=== PATIENT | male | born 1940 | race Caucasian/White ===

== ENCOUNTER 2017-07-07 20:28 | Emergency (ER) | payer MEDICARE ==
[2017-07-07 20:33] VITALS: BP_SYST 132; BP_DIAS 0; BP_DIAS 70; PULSE 56; RESP 20; TEMP 97.8; O2SAT 99
--- NOTE | 2017-07-07 21:01 | PD ---
HPI Chief Complaint: Head Injury Time Seen by Provider: 20:46 Travel History International Travel<30 days: No Contact w/Intl Traveler<30days: No Traveled to known affect area: No History of Present Illness HPI 76yo M with PMH of CAD on coumadin here for evaluation after head trauma. Pt had been drinking at a [employer] since 2pm today and went home to sleep. His heard a loud thump and pt had rolled off the bed and has a large hematoma on right forehead. Pt said he does not really remember what happened but denies any complaints. Pt denies any visual changes, chest pain, sob, n/v, abdominal pain, focal weakness or numbness. Said up to date on tetanus. PFSH Past Medical History Hx Anticoagulant Therapy: Yes (COUMADIN) Social History Tobacco Use: No Allergies-Medications (Allergen,Severity, Reaction): Coded Allergies: No Known Allergies (Verified Allergy, Unknown, 07/07/17) Reported Meds & Prescriptions Reported Meds & Active Scripts Active Active Prescriptions or Reported Medications Unobtainable Review of Systems Except as stated in HPI: all other systems reviewed are Neg Physical Exam Narrative GENERAL: 76yo M mildly intoxicated. SKIN: Focused skin assessment warm/dry. HEAD: +Large right forehead hematoma with some dry blood. No active bleeding. EYES: Pupils equal and round at 4mm bilaterally. EOMI. ENT: No hemotympanum. No septal hematoma. NECK: No midline ttp. CARDIOVASCULAR: Regular rate and rhythm. No murmur appreciated. RESPIRATORY: No accessory muscle use. Clear to auscultation. Breath sounds equal bilaterally. GASTROINTESTINAL: Abdomen soft, non-tender, nondistended. MUSCULOSKELETAL: No obvious deformities. No clubbing. No cyanosis. No edema. NEUROLOGICAL: Awake and alert. No obvious cranial nerve deficits. Motor grossly within normal limits in all extremities. Sensation equal bilaterally. Normal speech. PSYCHIATRIC: Appropriate mood and affect; insight and judgment normal. Data Data Last Documented VS Vital Signs Date Time Temp Pulse Resp B/P (MAP) Pulse Ox O2 Delivery O2 Flow Rate FiO2 07/07/17 23:00 07/07/17 22:23 57 17 99 Room Air 07/07/17 20:[address] Brain W/O Iv Contrast(Rout) (07/07/17 ) Complete Blood Count With Diff (07/07/17 20:56) Basic Metabolic Panel (Bmp) (07/07/17 20:56) Prothrombin Time / Inr (Pt) (07/07/17 20:56) Act Partial Throm Time (Ptt) (07/07/17 20:56) Ct Cerv Spine W/O Contrast (07/07/17 ) Ed Discharge Order (07/07/17 22:56) Labs Laboratory Tests Test 07/07/17 21:00 White Blood Count 6.6 TH/MM3 Red Blood Count 4.01 MIL/MM3 Hemoglobin 12.7 GM/DL Hematocrit 37.5 % Mean Corpuscular Volume 93.6 FL Mean Corpuscular Hemoglobin 31.7 PG Mean Corpuscular Hemoglobin Concent 33.9 % Red Cell Distribution Width 13.1 % Platelet Count 252 TH/MM3 Mean Platelet Volume 7.3 FL Neutrophils (%) (Auto) 56.4 % Lymphocytes (%) (Auto) 32.1 % Monocytes (%) (Auto) 9.3 % Eosinophils (%) (Auto) 1.5 % Basophils (%) (Auto) 0.7 % Neutrophils # (Auto) 3.8 TH/MM3 Lymphocytes # (Auto) 2.1 TH/MM3 Monocytes # (Auto) 0.6 TH/MM3 Eosinophils # (Auto) 0.1 TH/MM3 Basophils # (Auto) 0.0 TH/MM3 CBC Comment DIFF FINAL Differential Comment Prothrombin Time 11.3 SEC Prothromb Time International Ratio 1.1 RATIO Activated Partial Thromboplast Time 24.9 SEC Blood Urea Nitrogen 16 MG/DL Creatinine 0.93 MG/DL Random Glucose 119 MG/DL Calcium Level 8.6 MG/DL Sodium Level 138 MEQ/L Potassium Level 3.7 MEQ/L Chloride Level 103 MEQ/L Carbon Dioxide Level 28.2 MEQ/L Anion Gap 7 MEQ/L Estimat Glomerular Filtration Rate 79 ML/MIN [facility] Medical Decision Making Medical Screen Exam Complete: Yes Emergency Medical Condition: Yes Differential Diagnosis ICH vs. contusion vs. concussion Narrative Course 76yo M with head injury after falling off the bed today. Labs reviewed, no leukocytosis. H/H 12.7/37.5. BMP unremarkable. INR is 1.1. CT cspine showed degenerative changes without fracture. Small stenosis is mild to moderate. CT brain showed right cephalohematoma otherwise negative for acute process. Pt's is with him and he can be observed at home. Pt is GCS 15 and has no focal neurologic deficits. Return precautions given. Diagnosis Primary Impression: Head injury Qualified Codes: S09.90XA - Unspecified injury of head, initial encounter Patient Instructions: General Instructions Departure Forms: Tests/Procedures Additional Instructions: Please follow up with your primary care physician in 2-3 days. Return to the ED if symptoms worsen. Med/Other Pt SpecificInfo: No Change to Meds Scripts Unable to Obtain Active Prescriptions or Reported Meds Disposition: 01 DISCHARGE HOME Condition: Stable Shania Paula DO Jul 07, 2017 21:01
[2017-07-07 21:10] LABS: AUTOMATED NEUTROPHIL # 3.8 TH/MM3 (1.8-7.7); BASOPHIL % 0.7 % (0.0-2.0); EOSINOPHIL # 0.1 TH/MM3 (0-0.4); EOSINOPHIL % 1.5 % (0.0-4.0); HEMATOCRIT 37.5 % (39.0-51.0); HEMOGLOBIN 12.7 GM/DL (13.0-17.0); LYMPH % 32.1 % (9.0-44.0); LYMPHOCYTE # 2.1 TH/MM3 (1.0-4.8); MEAN CELL VOLUME 93.6 FL (80.0-100.0); MEAN CORPUSCULAR HEMOGLOBIN 31.7 PG (27.0-34.0); MEAN CORPUSCULAR HGB CONC 33.9 % (32.0-36.0); MEAN PLATELET VOLUME 7.3 FL (7.0-11.0); MONO % 9.3 % (0.0-8.0); MONOCYTE # 0.6 TH/MM3 (0-0.9); NEUT % 56.4 % (16.0-70.0); PLATELET COUNT 252 TH/MM3 (150-450); RED BLOOD COUNT 4.01 MIL/MM3 (4.50-5.90); RED CELL DISTRIBUTION WIDTH 13.1 % (11.6-17.2); WHITE BLOOD COUNT 6.6 TH/MM3 (4.0-11.0)
[2017-07-07] MEDS ORDERED: WARF-18 PO (21:14)
[2017-07-07 21:23] LABS: CALCIUM 8.6 MG/DL (8.5-10.1)
[2017-07-07 21:24] LABS: BICARBONATE 28.2 MEQ/L (21.0-32.0)
[2017-07-07 21:26] LABS: INTERNATIONAL NORMALIZED RATIO 1.1 RATIO; PROTHROMBIN TIME - PATIENT 11.3 SEC (9.8-11.6)
[2017-07-07 21:27] LABS: CREATININE 0.93 MG/DL (0.60-1.30)
--- NOTE | 2017-07-07 22:00 | RADRPT ---
EXAM DATE/TIME: 07/07/2017 21:30 [facility] COMPARISON: No previous studies available for comparison. INDICATIONS : Trauma, fall from bed. Hematoma to right forehead. RADIATION DOSE: 58.17 CTDIvol (mGy) MEDICAL HISTORY : Cardiovascular disease. Hypertension. SURGICAL HISTORY : CABG ENCOUNTER: Initial ACUITY: 1 day PAIN SCALE: 3/10 LOCATION: Right frontal TECHNIQUE: Multiple contiguous axial images were obtained of the head. Using automated exposure control and adj ustment of the mA and/or kV according to patient size, radiation dose was kept as low as reasonably a chievable to obtain optimal diagnostic quality images. DICOM format image data is available electro nically for review and comparison. FINDINGS: CEREBRUM: The ventricles are normal for age. No evidence of midline shift, mass lesion, hemorrhage or acute in farction. No extra-axial fluid collections are seen. POSTERIOR FOSSA: The cerebellum and brainstem are intact. The 4th ventricle is midline. The cerebellopontine angle i s unremarkable. EXTRACRANIAL: The visualized portion of the orbits is intact. SKULL: The calvaria is intact. No evidence of skull fracture. Right cephalohematoma CONCLUSION: Right cephalohematoma otherwise negative for an acute process. Luis Osei MD FACR on July 07, 2017 at 21:57 Board Certified Radiologist. This report was verified electronically.
--- NOTE | 2017-07-07 22:07 | RADRPT ---
EXAM DATE/TIME: 07/07/2017 21:30 [facility] COMPARISON: No previous studies available for comparison. INDICATIONS : Trauma, fall from bed. RADIATION DOSE: 26.56 CTDIvol (mGy) MEDICAL HISTORY : Hypertension. Cardiovascular disease SURGICAL HISTORY : CABG ENCOUNTER: Initial ACUITY: 1 day PAIN SCALE: 0/10 LOCATION: neck TECHNIQUE: Volumetric scanning of the cervical spine was performed. Multiplanar reconstructions in the sagittal, coronal and oblique axial planes were performed. Using automated exposure control and adjustment o f the mA and/or kV according to patient size, radiation dose was kept as low as reasonably achievable to obtain optimal diagnostic quality images. DICOM format image data is available electronically f or review and comparison. FINDINGS: VERTEBRAE: Normal vertebral body height. ALIGNMENT: No evidence of subluxation. C2-C3: The bony spinal canal is normal in size. No evidence of disc bulge or herniation. The neural forami na are bilaterally patent. C3-C4: Moderate uncinate ridging is present with bilateral neural foraminal encroachment C4-C5: Moderate uncinate ridging is present with bilateral neural foramina encroachment C5-C6: Moderate uncinate ridging with bilateral neural foramina encroachment C6-C7: The bony spinal canal is normal in size. No evidence of disc bulge or herniation. The neural forami na are bilaterally patent. C7-T1: The bony spinal canal is normal in size. No evidence of disc bulge or herniation. The neural forami na are bilaterally patent. CONCLUSION: Degenerative changes without fracture. Small stenosis is mild to moderate. Luis Osei MD FACR on July 07, 2017 at 22:02 Board Certified Radiologist. This report was verified electronically.
[2017-07-07 22:23] VITALS: BP 134/77; PULSE 57; RESP 17; O2SAT 99
== END 2017-07-07 23:12 | disposition home or self-care (01) ==
LOC: PHED 20:28
DX: S00.83XA Contusion of other part of head, initial encounter (principal); W06.XXXA Fall from bed, initial encounter
CPT/HCPCS: 70450; 72125; 80048; 85025; 85610; 85730; 99285